=== PATIENT | female | born 1970 | race Caucasian/White ===

== ENCOUNTER 2018-04-27 18:03 | Emergency (ER) | payer MEDICAID ==
[2018-04-27 18:24] VITALS: BP 123/75
--- NOTE | 2018-04-27 18:51 | ER Document Report ---
ED General - General Mode of Arrival: Ambulatory Information source: Patient <SHAWN MACIAS - Last Filed: 04/27/18 20:06> - General TRAVEL OUTSIDE OF THE [place] IN LAST 30 DAYS: No <AMINATA FELDER - Last Filed: 04/27/18 20:15> - General Chief Complaint: Chest Pain Stated Complaint: CHEST PAIN Time Seen by Provider: 04/27/18 18:35 Notes: Patient is a 47 year old female with prinzmetal angina, HIV, spinal damage presents to the emergency department complaining of bilateral foot pain onset 3 days ago. Patient states she recently took a train to [place] from [place] for vacation. She states her left foot also feels a little numb. Patient denies any shortness of breath, bowel or urinary incontinence, vomiting, change in diet or dysuria. (SHAWN MACIAS) - Related Data Allergies/Adverse Reactions: Penicillins Allergy (Verified 04/27/18 18:08) Past Medical History - General Information source: Patient - Social History Smoking Status: Unknown if Ever Smoked Chew tobacco use (# tins/day): No Frequency of alcohol use: None Drug Abuse: None Patient has suicidal ideation: No Patient has homicidal ideation: No <SHAWN MACIAS - Last Filed: 04/27/18 20:06> - Social History Smoking Status: Former Smoker Chew tobacco use (# tins/day): No Frequency of alcohol use: None Drug Abuse: None Family History: CAD Patient has suicidal ideation: No Patient has homicidal ideation: No Renal/ Medical History: Denies: Hx Peritoneal Dialysis <AMINATA FELDER - Last Filed: 04/27/18 20:15> Review of Systems - Review of Systems Constitutional: No symptoms reported EENT: No symptoms reported Cardiovascular: No symptoms reported Gastrointestinal: No symptoms reported Genitourinary: No symptoms reported Female Genitourinary: No symptoms reported Musculoskeletal: See HPI Skin: See HPI Hematologic/Lymphatic: No symptoms reported Neurological/Psychological: No symptoms reported -: Yes All other systems reviewed and negative <SHAWN MACIAS - Last Filed: 04/27/18 20:06> Physical Exam <SHAWN MACIAS - Last Filed: 04/27/18 20:06> <AMINATA FELDER - Last Filed: 04/27/18 20:15> - Vital signs Vitals: Temp Pulse Resp BP Pulse Ox 98.1 F 95 22 H 123/75 97 04/27/18 18:23 04/27/18 18:23 04/27/18 18:23 04/27/18 18:23 04/27/18 18:23 - Notes Notes: GENERAL: Alert, interacts well. No acute distress. HEAD: Normocephalic, Atraumatic. NECK: Full range of motion. Supple. Trachea midline. LUNGS: Clear to auscultation bilaterally, no wheezes, rales, or rhonchi. No respiratory distress. HEART: Regular rate and rhythm. No murmurs, gallops, or rubs. ABDOMEN: Soft, non-tender. Non-distended. Bowel sounds present in all 4 quadrants. EXTREMITIES: Moves all four extremities spontaneously. Numbness in lateral aspect of left leg following along the dorsal aspect to the left foot and left great toe following exactly the L5 dermatome. Peripheral edema to bilateral foot. PSYCH: Normal affect, normal mood. (SHAWN MACIAS) 5 out of 5 great toe raising strength on the left. (AMINATA FELDER) Course <SHAWN MACIAS - Last Filed: 04/27/18 20:06> <AMINATA FELDER - Last Filed: 04/27/18 20:15> - Re-evaluation Re-evalutation: 04/27/18 18:48 Small amount of peripheral edema, minimally pitting, no orthopnea, no shortness of breath, no chest pain, lung exam unremarkable. Very low suspicion for heart failure at this time. Patient has only gained 2 pounds over the past few days since coming down here. Denies any dietary indiscretions. No indication for heart failure workup at this time given the above. Patient's numbness of exactly follows the L5 dermatome. No saddle anesthesia, no other red flag symptoms. Patient will be discharged home, encouraged to follow-up with primary care for provider for MRI of lumbar spine at a later date. (AMINATA FELDER ) - Vital Signs Vital signs: Temp Pulse Resp BP Pulse Ox 98.1 F 95 22 H 123/75 97 04/27/18 18:23 04/27/18 18:23 04/27/18 18:23 04/27/18 18:23 04/27/18 18:23 - EKG Interpretation by Me Additional EKG results interpreted by me: 04/27/18 18:49 EKG shows sinus rhythm at a rate of 87, left axis deviation, normal intervals, poor R-wave progression, no ST segment elevations or depressions, no discordant T-wave inversions per my interpretation. (AMINATA FELDER) Discharge <SHAWN MACIAS - Last Filed: 04/27/18 20:06> <AMINATA FELDER - Last Filed: 04/27/18 20:15> - Discharge Clinical Impression: Lumbosacral radiculopathy at L5, Mild peripheral edema Condition: Stable Disposition: HOME, SELF-CARE Additional Instructions: Radiculopathy Radiculopathy is irritation of a nerve. Sometimes this is called "pinched nerve." The pain can be sharp and stabbing, constant and dull, or burning in nature. The pain can occur in any area of the chest, shoulders, or arms. Sometimes the pain is provoked by coughing or moving. Radiculopathy can be caused by physical pressure on a nerve, such as a herniated disc or swollen joint in the spine. It can also be caused by viral infections within the nerve or by nerve damage due to diabetes or blood vessel disease. Radicular pain is treated with antiinflammatory medicine. Injections may help resistant cases, if we can identify a single nerve that's causing the pain. Surgery is usually not necessary. If symptoms do not improve with time, you may need additional testing, such as an MRI or EMG (electromyogram). Return if there is local weakness or numbness, shortness of breath, increasing pain, or other new symptoms. Your numbness in your left leg is coming from a pinched nerve, likely the L5 nerve root. Should she develop numbness between her legs, difficulty with your bowels or bladder, difficulty lifting your left foot or any new or concerning symptoms please return to the emergency department. Otherwise follow-up with your primary care physician as an outpatient. Please weigh yourself every day. If you gain 5 pounds or more overnight please return to the emergency department. Please also return for chest pain, shortness of breath, difficulty breathing while laying flat or any other new or concerning symptoms. The condition you asked me to write down for you is called Prinzmetal's angina. There is no sign you are actively having vasospasm today. Scribe Attestation: 04/27/18 20:15 I personally performed the services described in the documentation, reviewed and edited the documentation which was dictated to the scribe in my presence, and it accurately records my words and actions. (AMINATA FELDER) Scribe Documentation - Scribe Written by Bishnu:: Bishnu [place], 04/27/2018 20:07 acting as scribe for :: Suzanna <SHAWN MACIAS - Last Filed: 04/27/18 20:06>
--- NOTE | 2018-04-27 23:50 | EKG REPORT ---
SEVERITY:- ABNORMAL ECG - SINUS RHYTHM ABNRM R PROG, CONSIDER ASMI OR LEAD PLACEMENT : Confirmed by: Kenia Mayorga 27-Apr-2018 23:49:53
== END 2018-04-27 18:52 | disposition home or self-care (01) ==
LOC: ER 18:03
DX: M54.17 Radiculopathy, lumbosacral region (principal); M79.671 Pain in right foot; M79.672 Pain in left foot; R60.0 Localized edema; R20.0 Anesthesia of skin; Z21 Asymptomatic human immunodeficiency virus [HIV] infection status; Z87.891 Personal history of nicotine dependence; Z88.0 Allergy status to penicillin
CPT/HCPCS: 93005; 93010; 99285